=== PATIENT | female | born 1955 | race Caucasian/White ===

== ENCOUNTER 2020-08-26 11:33 | Emergency (ER) | payer MEDICARE, OTHER ==
[2020-08-26 13:24] LABS: BASOPHIL 1.5 % (0-2); EOSINOPHIL 4.6 % (0-7); HCT 40.7 % (37.0-47.0); HGB 13.1 g/dl (12.5-16.0); LYMPHOCYTE 43.8 % (15-48); MCH 28.3 pg (25.0-31.0); MCHC 32.2 g/dL (32.0-36.0); MCV 87.9 fL (78.0-100.0); MONOCYTE 11.5 % (0-12); MPV 10.2 fL (6.0-9.5); NEUTROPHIL 38.4 % (41-80); NRBC 0; PLT 235 K/uL (150-400); RBC 4.63 M/uL (4.20-5.40); RDW 14.2 % (11.5-14.0); WBC 4.1 K/uL (4.0-10.5)
[2020-08-26 13:37] LABS: BUN/CREAT RATIO (CALC) 13.6 RATIO; CREATININE 0.81 mg/dL (0.51-0.95); POTASSIUM 3.9 mmol/L (3.5-5.1)
[2020-08-26 13:43] LABS: BILIRUBIN NEGATIVE (NEGATIVE); BLOOD NEGATIVE Ery/uL (NEGATIVE); CLARITY CLEAR (CLEAR); COLOR YELLOW (YELLOW); GLUCOSE (U) NORMAL (NORMAL); LEUKOCYTES NEGATIVE Leu/uL (NEGATIVE); NITRITE NEGATIVE (NEGATIVE); PROTEIN NEGATIVE (NEGATIVE); SPECIFIC GRAVITY 1.015 (1.001-1.030); UROBILINOGEN 0.2 mg/dL (0.2-1.0)
== END 2020-08-26 15:59 | disposition home or self-care (01) ==
LOC: FER 11:33
PROVIDERS: Nurse Practitioner Family
DX: R07.89 Other chest pain (principal); Z88.4 Allergy status to anesthetic agent
CPT/HCPCS: 36415; 71045; 80048; 81003; 83735; 84484; 85025; 85379; 93005